=== PATIENT | female | born 1995 | race Caucasian/White ===

== ENCOUNTER 2023-06-23 10:17 | Emergency (ER) | payer OTHER, BC ==
[2023-06-23 11:53] LABS: BHCG - Serum Negative (NEGATIVE); Pregs Control Background? CLEAR/WHITE (CLR/WHITE); Pregs Control Bar Appear? YES (CONTROL BAR)
[2023-06-23] MEDS ORDERED: Iopamidol 300 61% 100 ML VIAL FS ONE (12:22)
== END 2023-06-23 13:00 | disposition home or self-care (01) ==
LOC: CSHERS 10:17
DX: R10.9 Unspecified abdominal pain (principal); V89.2XXA Person injured in unspecified motor-vehicle accident, traffic, initial encounter
CPT/HCPCS: 74177; 84703; Q9967

== ENCOUNTER 2025-03-27 05:27 | Inpatient (IN) | payer BC, OTHER ==
[2025-03-27] MEDS ORDERED: Tranexamic Acid 1,000 MG/10 ML VIAL IVP PRN (05:53)
[2025-03-27] MEDS ORDERED: Carboprost 250 MCG/ML AMP IM PRN (05:53)
[2025-03-27] MEDS ORDERED: Lidocaine 1% (PF) 30 ML VIAL SC PRN (05:53)
[2025-03-27] MEDS ORDERED: Acetaminophen 500 MG TAB PO PRN (05:53)
[2025-03-27] MEDS ORDERED: Diphenoxylate HCl/Atropine Tablet PO PRN ×2 (05:53)
[2025-03-27] MEDS ORDERED: Ondansetron PF 4 MG/2 ML Vial IVP PRN (05:53)
[2025-03-27] MEDS ORDERED: Methylergonovine 0.2 MG/ML VIAL IM PRN ×2 (05:53→12:19)
[2025-03-27] MEDS ORDERED: hydrALAZINE 20 MG/ML VIAL SLOW IVP PRN ×2 (05:53→12:19)
[2025-03-27] MEDS ORDERED: Penicillin G 2.5 MILL.units 2.5 MILL.UNITS in Premix 1 BAG IVPB SCH (06:00)
[2025-03-27] MEDS ORDERED: Oxytocin 30 units/NS 500 ML 500 ML IV SCH (06:00)
[2025-03-27] MEDS ORDERED: Penicillin G Potassium 5 MILL.UNITS in Sodium Chloride 0.9% 100 ML IVPB SCH (06:00)
[2025-03-27 06:13] VITALS: BMI 31.7
[2025-03-27 06:13] LABS: Hematocrit 37.5 % (34.9-44.5); Hemoglobin 11.8 g/dL (12.0-15.5); Mean Corpuscular Hemoglobin 29.4 pg (27.0-33.0); Mean Corpuscular Volume 93.5 fL (81.6-98.3); Platelet Count 158 10x3/uL (150-450); Red Blood Cell (RBC) Count 4.01 10x6/uL (3.90-5.03); White Blood Cell (WBC) Count 9.09 10x3/uL (3.5-10.5)
[2025-03-27 06:39] LABS: Glucose 81 mg/dL (70-105)
[2025-03-27 06:42] LABS: Hep B Surf Ag - L&D Non-Reactive S/CO (NonReactive)
[2025-03-27 06:44] LABS: Syphilis Antibody Index 0.04 S/CO (<1.00 Non-Reactive)
[2025-03-27] MEDS ORDERED: Milk Of Magnesia 30 ML UDCUP PO PRN (12:19)
[2025-03-27] MEDS ORDERED: Lanolin Ointment 7 GM TUBE TOP PRN (12:19)
[2025-03-27] MEDS ORDERED: Bisacodyl 10 MG SUPP PR PRN (12:19)
[2025-03-27] MEDS: Ibuprofen 800 MG TAB PO PRN (13:16)
[2025-03-27] MEDS: Oxytocin 30 units/NS 500 ML 500 ML IV SCH (13:17)
[2025-03-27] MEDS: Boostrix 0.5 ML (Tdap) VIAL (>/=7 yrs of age) IM ONE (15:35)
[2025-03-27] MEDS: Ibuprofen 800 MG TAB PO SCH (15:35)
[2025-03-27] MEDS ORDERED: Measles/Mumps/Rubella 10 MCG/0.5 ML VIAL SC ONE (17:00)
[2025-03-27] MEDS: Ferrous Sulfate 325 MG TAB PO SCH (18:32)
[2025-03-27] MEDS: Benzocaine-Menthol 82.5 ML CAN TOP PRN (21:05)
[2025-03-28] MEDS ORDERED: Hydrocortisone/Pramoxine (Proctofoam HC) 10 GM BOX PR PRN (05:54)
[2025-03-28] MEDS: HYDROcodone/Acetaminophen 5/325 mg Tablet PO SCH (06:16)
[2025-03-28] MEDS: Preparation H Ointment 28 GM TUBE PR PRN (06:18)
[2025-03-28 12:08] VITALS: BP 120/80; TEMP 98.2
== END 2025-03-28 15:08 | disposition home or self-care (01) | DRG 806 ==
LOC: CSHLD/OP 05:27 → CSHLD 05:48 → CSHPP 15:00
PROVIDERS: ADMIT Family Medicine; ATTEND Family Medicine
PROC: 10E0XZZ Delivery of Products of Conception, External Approach (ICD-10-PCS; principal; 2025-03-27)
PROC: 0HQ9XZZ Repair Perineum Skin, External Approach (ICD-10-PCS; 2025-03-27)
DX: O42.02 Full-term premature rupture of membranes, onset of labor within 24 hours of rupture (principal); O87.2 Hemorrhoids in the puerperium; Z37.0 Single live birth; O66.0 Obstructed labor due to shoulder dystocia; O24.429 Gestational diabetes mellitus in childbirth, unspecified control; Z3A.37 37 weeks gestation of pregnancy; O70.0 First degree perineal laceration during delivery
CPT/HCPCS: 76815; 82947; 85027; 86780; 86850; 86900; 86901; 87340; 99285; J2590